=== PATIENT | male | born 1970 | race Caucasian/White ===

== ENCOUNTER 2024-01-17 03:42 | Day surgery (SDC) | payer BC, SELFPAY ==
[2023-12-29 15:49] VITALS: BMI 36.3
--- NOTE | 2024-01-14 12:13 | SUR.PREOP ---
Patient called regarding upcoming procedure. Reviewed preop instructions, appointment times, and procedure prep.
[2024-01-17 07:22] VITALS: BP 134/91; PULSE 79; RESP 18; TEMP 36.4; O2SAT 100
[2024-01-17] MEDS: LACTATED RINGERS 1,000 ML 150 ML IV CONT (07:31)
--- NOTE | 2024-01-17 08:00 | WPDANESEPPF ---
Anes - Initial Pre Proc Eval Procedure: Operation Date: 01/17/24 08:30 Proposed Procedures p Screening Colonoscopy - Zach Shahid MD Date/Time: 01/17/24 08:00 Surgeon: Zach Shahid MD Pre Op Diagnosis: neoplasm screening Patient Data Age: 53 Gender: M Height: 1.85 m Weight: 118.3 kg Last Vital Signs Temp 36.4 C L 01/17/24 07:22 Pulse 79 01/17/24 07:22 Resp 18 01/17/24 07:22 BP 134/91 H 01/17/24 07:22 Pulse Ox 100 01/17/24 07:22 O2 Del Method Room Air 01/17/24 07:22 Allergies Allergy/AdvReac Type Severity Reaction Status Date / Time No Known Allergies Allergy Verified 01/17/24 07:21 Home Medications Medication Instructions Recorded Confirmed Type testosterone enanthate 75 mg/0.5 75 mg subcut WEEKLY 09/28/23 12/29/23 History mL subcutaneous auto-injector tirzepatide (weight loss) 5 mg/0.5 5 mg (0.5 mL) subcut WEEKLY #2 mL 12/27/23 12/29/23 Rx mL subcutaneous pen injector (Zepbound) Patient hx anesthesia problems: none Family hx anesthesia problems: none Results Review: All pre-operative results and documents have been reviewed as part of the pre-operative evaluation. [facility] Past Medical History Medical History FH: cholecystectomy Social History Social History Smoking status: Never smoker Alcohol intake: current Drinks per week: 10 Alcohol use details: DRINKS Substance use: never Substance use type: does not use Lack of Transportation: No Living arrangements: with family Spiritual care concerns: No Anes - Eval Final PreProcedure Day of Procedure 01/17/24 08:00 Patient weight: obese Heart: regular rate and rhythm Lungs: clear to auscultation Airway: Mallampati scale class II Neurological: alert and oriented Last oral intake: >/= 8 hours ASA classification: III Emergent: no Anesthetic plan: proceed Anesthesia type and monitoring: general GIVS and standard monitoring Results Review: All pre-operative results and documents have been reviewed as part of the pre-operative evaluation. Informed Consent: The patient's anesthetic plan and its attendant risks and benefits were discussed with the patient/family/POA. Questions were solicited and answers provided to the satisfaction of the patient/family/POA.
--- NOTE | 2024-01-17 08:18 | PM.HPGS ---
History of Present Illness History of Present Illness Consent: Risks, benefits, and alternatives have been discussed and questions answered. Patient agrees to proceed with procedure. Chief complaint: neoplasm screening Narrative: Mohamud Cordon is a 53 year old male here for screening colonoscopy, had one more than 15 years ago Review of Systems Constitutional: Constitutional: Denies headache(s) and Denies weakness Eyes: Eyes: Denies blurry vision ENT: Reports Normal hearing present, Denies headache(s) and Denies neck pain Cardiovascular: Cardiovascular: Denies chest pain and Denies dyspnea Respiratory: Respiratory: Denies dyspnea Gastrointestinal: Gastrointestinal: Reports no additional gastrointestinal complaints Genitourinary: Genitourinary: Denies dysuria Musculoskeletal: Musculoskeletal: Denies neck pain Integumentary/Breasts: Skin/Breast: Denies dry skin Neurologic: Reports Normal hearing present, Denies headache(s) and Denies weakness Psychiatric: Psychiatric: Denies anxiety Endocrine: Endocrine: Denies change in body appearance Hematologic/Lymphatic: Hematologic/Lymphatic: Denies easy bleeding Allergic/Immunologic: Allergic/Immunologic: Denies urticaria PMFSH Past Medical History Medical History FH: cholecystectomy Social History Social History Smoking status: Never smoker Alcohol intake: current Drinks per week: 10 Alcohol use details: DRINKS Substance use: never Substance use type: does not use Lack of Transportation: No Living arrangements: with family Spiritual care concerns: No Meds Home Medications and Allergies Home Medications Medication Instructions Recorded Confirmed Type testosterone enanthate 75 mg/0.5 75 mg subcut WEEKLY 09/28/23 12/29/23 History mL subcutaneous auto-injector tirzepatide (weight loss) 5 mg/0.5 5 mg (0.5 mL) subcut WEEKLY #2 mL 12/27/23 12/29/23 Rx mL subcutaneous pen injector (Zepbound) Allergies Allergy/AdvReac Type Severity Reaction Status Date / Time No Known Allergies Allergy Verified 01/17/24 07:21 Vital Signs Vital Signs - 24 hr 01/17/24 07:22 Temperature 97.5 F L Pulse Rate 79 Respiratory Rate 18 Blood Pressure 134/91 H Pulse Oximetry 100 Oxygen Delivery Room Air Exam Const: General: comfortable and no acute distress HENMT: Face/Nose/Sinus: Normal nares present Eyes: General: appearance normal, both eyes and all related structures Neck: Neck: no JVD Resp: Auscultation: clear to auscultation bilaterally Cardio: Rate: regular rate Rhythm: regular rhythm GI: Inspection: non-distended GI Palp: Yes Soft to palpation Skin: General skin exam: normal color Neuro: General: gait normal Speech: normal speech Extrem: General: normal to inspection Psych: Mental Status: mental status grossly normal Assessment and Plan Assessment and plan (1) Screening for colon cancer: Code(s): Z12.11 - Encounter for screening for malignant neoplasm of colon Status: Acute Assessment and Plan: colonoscopy
[2024-01-17 08:37] VITALS: BP 110/74; PULSE 70; RESP 20; O2SAT 97
[2024-01-17 08:47] VITALS: BP 115/74; PULSE 67; RESP 16; O2SAT 97
[2024-01-17 08:57] VITALS: BP 119/81; PULSE 77; RESP 18; O2SAT 100
== END 2024-01-17 09:05 | disposition home or self-care (01) ==
PROVIDERS: PCP Clinical Nurse Specialist; Visit Provider Internal Medicine Gastroenterology
PROC: 0DJD8ZZ Inspection of Lower Intestinal Tract, Via Natural or Artificial Opening Endoscopic (ICD-10-PCS; CPT 45378; principal; 2024-01-17 08:30)
DX: Z12.11 Encounter for screening for malignant neoplasm of colon (principal); K64.8 Other hemorrhoids; K57.30 Diverticulosis of large intestine without perforation or abscess without bleeding; E66.9 Obesity, unspecified; Z68.34 Body mass index [BMI] 34.0-34.9, adult; Z79.85 Long-term (current) use of injectable non-insulin antidiabetic drugs; Z90.49 Acquired absence of other specified parts of digestive tract
CPT/HCPCS: 45378; J2704; J7120